=== PATIENT | female | born 1950 | race Hispanic/Latino ===

== ENCOUNTER 2020-07-14 11:32 | Outpatient (CLI) | payer MEDICARE ==
--- NOTE | 2020-07-14 12:41 | XRay Report ---
THORACIC SPINE. CLINICAL DATA: ACUTE RIGHT SIDED THORACIC BACK PAIN TECHNICAL DATA: AP and lateral views were obtained of the thoracic spine. FINDINGS: The thoracic vertebrae have normal anatomic height and alignment. The disc spaces are normal. No sig nificant degenerative changes are present. No evidence of a fracture. There is no paraspinal edema or hemorrhage. Hiatal hernia is present. IMPRESSION: Normal thoracic spine. Signer Name: Filipe Cotto MD Signed: 07/14/2020 12:36 PM Workstation Name: [id number]
--- NOTE | 2020-07-14 12:42 | XRay Report ---
LEFT RIBS HISTORY: ACUTE RIGHT SIDED THORACIC BACK PAIN COMPARISON: None. TECHNIQUE: 4 views of the left ribs were obtained. FINDINGS: Bones: No fracture or dislocation. Joint spaces: Maintained. Soft tissues: No significant abnormality. Additional findings: Hiatal hernia is present. Very small right pleural effusion IMPRESSION: 1. Very small right pleural effusion Signer Name: Filipe Cotto MD Signed: 07/14/2020 12:38 PM Workstation Name: [id number]
== END 2020-07-14 11:33 | disposition home or self-care (01) ==
LOC: SPVIMAG 11:32
PROVIDERS: ATTEND Internal Medicine
DX: J90 Pleural effusion, not elsewhere classified (principal); K44.9 Diaphragmatic hernia without obstruction or gangrene
CPT/HCPCS: 72072

== ENCOUNTER 2021-07-23 12:02 | Outpatient (CLI) | payer MEDICARE ==
--- NOTE | 2021-07-24 17:02 | Mammography Report ---
DIGITAL SCREENING MAMMOGRAM WITH CAD, 07/23/2021 CLINICAL INFORMATION / INDICATION: Routine screening mammography. TECHNIQUE: Digital bilateral 2D mammography was obtained in the craniocaudal and mediolateral obliqu e projections. This examination was interpreted with the benefit of Computer-Aided Detection analysis . COMPARISON: None available FINDINGS: Breast Density: The breasts are heterogeneously dense, which may obscure small masses. No dominant mass, suspicious calcifications, or architectural distortion in either breast. IMPRESSION: No mammographic evidence of malignancy. Follow up recommendation: Routine yearly BI-RADS Category 1: Negative. A "normal" or negative report should not discourage follow up or biopsy of a clinically significant f inding. A written summary of these findings will be mailed to the patient. The patient will be entered into a mammography reporting system which will generate a reminder letter for the patient's next appointmen t at the appropriate interval. The [employer] recommends yearly mammograms starting at age 40 and continuing as l katharina as a woman is in good health. Breast MRI is recommended for women with an approximate 20-25% or greater lifetime risk of breast cancer, including women with a strong family history of breast or ova tico cancer or who have been treated for Hodgkin's disease. Signer Name: Brielle Garner MD Signed: 07/24/2021 4:57 PM Workstation Name: [email or web address]
== END 2021-07-23 12:03 | disposition home or self-care (01) ==
LOC: SPVWC 12:02
PROVIDERS: ATTEND Internal Medicine
DX: Z12.31 Encounter for screening mammogram for malignant neoplasm of breast (principal)
CPT/HCPCS: 77067